=== PATIENT | female | born 1995 | race Two or more races ===

== ENCOUNTER 2023-05-18 09:50 | Emergency (ER) | payer MEDICAID ==
[~2023-05-18] VITALS: Ht 154.9 cm; Wt 63.0 kg
[2023-05-18 11:02] VITALS: BP 109/61; PULSE 74; RESP 16; TEMP 98.1; O2SAT 100
[2023-05-18] MEDS ORDERED: [UNRECOGNIZED DRUG - CODE] EX (11:11)
[2023-05-18] MEDS ORDERED: CLIN300C70 PO (11:11)
== END 2023-05-18 11:20 | disposition home or self-care (01) ==
LOC: ER 09:50
DX: L70.0 Acne vulgaris (principal); Z79.899 Other long term (current) drug therapy